=== PATIENT | female | born 1980 | race African-American/Black ===

== ENCOUNTER 2018-02-27 16:30 | Day surgery (SDC) | payer BC ==
[2018-02-27 17:03] VITALS: BP 134/73; PULSE 95; TEMP 98.3
[2018-02-27] MEDS ORDERED: CYANOCOBALAMIN (VITAMIN B-12) 1000 MCG/1 ML VIAL SQ ONE (17:30)
[2018-02-27] MEDS ORDERED: IRON SUCROSE INJECTION 200 MG in SODIUM CHLORIDE 100 ML IVPB ONE (18:30)
== END 2018-02-27 19:40 | disposition home or self-care (01) ==
LOC: FINFUSION 16:30 → FM/S 16:32 → FINFUSION 19:40
PROVIDERS: ATTEND Internal Medicine Hematology & Oncology
PROC: 3E033GC Introduction of Other Therapeutic Substance into Peripheral Vein, Percutaneous Approach (ICD-10-PCS; principal; 2018-02-27)
PROC: 3E013GC Introduction of Other Therapeutic Substance into Subcutaneous Tissue, Percutaneous Approach (ICD-10-PCS; 2018-02-27)
DX: D50.9 Iron deficiency anemia, unspecified (principal); D51.0 Vitamin B12 deficiency anemia due to intrinsic factor deficiency
CPT/HCPCS: 96365; 96372; J1756

== ENCOUNTER 2018-03-01 11:16 | Day surgery (SDC) | payer BC ==
[2018-03-01] MEDS ORDERED: IRON SUCROSE INJECTION 200 MG in SODIUM CHLORIDE 100 ML IVPB ONE (11:45)
[2018-03-01] MEDS ORDERED: CYANOCOBALAMIN (VITAMIN B-12) 1000 MCG/1 ML VIAL SQ SCH (12:00)
[2018-03-01 12:24] VITALS: BP 132/76; PULSE 72
[2018-03-01 13:03] VITALS: TEMP 98.4
== END 2018-03-01 12:25 | disposition home or self-care (01) ==
LOC: FINFUSION 11:16 → FM/S 11:19 → FINFUSION 12:25
PROVIDERS: ATTEND Internal Medicine Hematology & Oncology
PROC: 3E033GC Introduction of Other Therapeutic Substance into Peripheral Vein, Percutaneous Approach (ICD-10-PCS; principal; 2018-03-01)
PROC: 3E013GC Introduction of Other Therapeutic Substance into Subcutaneous Tissue, Percutaneous Approach (ICD-10-PCS; 2018-03-01)
DX: D50.9 Iron deficiency anemia, unspecified (principal); D51.0 Vitamin B12 deficiency anemia due to intrinsic factor deficiency
CPT/HCPCS: 96365; 96372; J1756

== ENCOUNTER 2018-03-06 09:37 | Day surgery (SDC) | payer BC ==
[2018-03-06] MEDS ORDERED: CYANOCOBALAMIN (VITAMIN B-12) 1000 MCG/1 ML VIAL SQ ONE (11:00)
[2018-03-06] MEDS ORDERED: IRON SUCROSE INJECTION 200 MG in SODIUM CHLORIDE 100 ML IVPB ONE (11:00)
[2018-03-06 12:17] VITALS: BP 120/71; PULSE 77; TEMP 98.2
== END 2018-03-06 10:59 | disposition home or self-care (01) ==
LOC: FINFUSION 09:37 → FM/S 09:37 → FINFUSION 10:59
PROVIDERS: ATTEND Internal Medicine Hematology & Oncology
PROC: 3E033GC Introduction of Other Therapeutic Substance into Peripheral Vein, Percutaneous Approach (ICD-10-PCS; principal; 2018-03-06)
PROC: 3E013GC Introduction of Other Therapeutic Substance into Subcutaneous Tissue, Percutaneous Approach (ICD-10-PCS; 2018-03-06)
DX: D50.9 Iron deficiency anemia, unspecified (principal); D51.0 Vitamin B12 deficiency anemia due to intrinsic factor deficiency
CPT/HCPCS: 96365; 96372; J1756

== ENCOUNTER 2018-03-08 12:51 | Day surgery (SDC) | payer BC ==
[2018-03-08] MEDS ORDERED: CYANOCOBALAMIN (VITAMIN B-12) 1000 MCG/1 ML VIAL SQ SCH (13:15)
[2018-03-08] MEDS ORDERED: IRON SUCROSE INJECTION 200 MG in SODIUM CHLORIDE 100 ML IVPB ONE (13:15)
[2018-03-08 13:38] VITALS: TEMP 97.4; BMI 74.9
[2018-03-08 15:04] VITALS: BP 120/68; PULSE 78
== END 2018-03-08 15:04 | disposition home or self-care (01) ==
LOC: FINFUSION 12:51 → FM/S 12:52 → FINFUSION 15:04
PROVIDERS: ATTEND Internal Medicine Hematology & Oncology
PROC: 3E033GC Introduction of Other Therapeutic Substance into Peripheral Vein, Percutaneous Approach (ICD-10-PCS; principal; 2018-03-08)
PROC: 3E013GC Introduction of Other Therapeutic Substance into Subcutaneous Tissue, Percutaneous Approach (ICD-10-PCS; 2018-03-08)
DX: D50.9 Iron deficiency anemia, unspecified (principal); D51.0 Vitamin B12 deficiency anemia due to intrinsic factor deficiency
CPT/HCPCS: 96365; 96372; J1756

== ENCOUNTER 2018-04-24 12:28 | Day surgery (SDC) | payer BC ==
[2018-04-24] MEDS ORDERED: IRON SUCROSE INJECTION 200 MG in SODIUM CHLORIDE 100 ML IVPB ONE (12:45)
[2018-04-24 13:18] VITALS: BP 124/64; PULSE 88; TEMP 98.8
[2018-04-24] MEDS ORDERED: CYANOCOBALAMIN (VITAMIN B-12) 1000 MCG/1 ML VIAL IM ONE (13:30)
== END 2018-04-24 14:15 | disposition home or self-care (01) ==
LOC: FM/S 12:28 → FINFUSION 12:28
PROVIDERS: ATTEND Internal Medicine Hematology & Oncology
PROC: 3E033GC Introduction of Other Therapeutic Substance into Peripheral Vein, Percutaneous Approach (ICD-10-PCS; principal; 2018-04-24)
PROC: 3E013GC Introduction of Other Therapeutic Substance into Subcutaneous Tissue, Percutaneous Approach (ICD-10-PCS; 2018-04-24)
DX: D50.9 Iron deficiency anemia, unspecified (principal); D51.0 Vitamin B12 deficiency anemia due to intrinsic factor deficiency
CPT/HCPCS: 96365; 96372; J1756

== ENCOUNTER 2018-04-26 12:38 | Day surgery (SDC) | payer BC ==
[2018-04-26] MEDS ORDERED: CYANOCOBALAMIN (VITAMIN B-12) 1000 MCG/1 ML VIAL IM SCH (13:15)
[2018-04-26] MEDS ORDERED: IRON SUCROSE INJECTION 200 MG in SODIUM CHLORIDE 100 ML IVPB ONE (13:15)
[2018-04-26 13:28] VITALS: TEMP 98.4
[2018-04-26 16:38] VITALS: BP 120/64; PULSE 84
== END 2018-04-26 14:15 | disposition home or self-care (01) ==
LOC: FINFUSION 12:38 → FM/S 12:44 → FINFUSION 14:15
PROVIDERS: ATTEND Internal Medicine Hematology & Oncology
PROC: 3E033GC Introduction of Other Therapeutic Substance into Peripheral Vein, Percutaneous Approach (ICD-10-PCS; principal; 2018-04-26)
DX: D50.9 Iron deficiency anemia, unspecified (principal)
CPT/HCPCS: 96365; 96372; J1756

== ENCOUNTER 2018-04-28 13:02 | Day surgery (SDC) | payer BC ==
[2018-04-28 13:30] VITALS: BP 138/66; PULSE 79; TEMP 98.5; BMI 34.7
[2018-04-28] MEDS ORDERED: IRON SUCROSE INJECTION 200 MG in SODIUM CHLORIDE 100 ML IVPB ONE (13:30)
[2018-04-28] MEDS ORDERED: PT OWN MED DRAWER 7, Y5N ONE (13:49)
== END 2018-04-28 14:45 | disposition home or self-care (01) ==
LOC: FINFUSION 13:02 → FM/S 13:05 → FINFUSION 14:45
PROVIDERS: ATTEND Internal Medicine Hematology & Oncology
PROC: 3E033GC Introduction of Other Therapeutic Substance into Peripheral Vein, Percutaneous Approach (ICD-10-PCS; principal; 2018-04-28)
DX: D50.9 Iron deficiency anemia, unspecified (principal)
CPT/HCPCS: 96365; 96372; J1756

== ENCOUNTER 2018-05-02 15:49 | Day surgery (SDC) | payer BC ==
[2018-05-02] MEDS ORDERED: CYANOCOBALAMIN (VITAMIN B-12) 1000 MCG/1 ML VIAL SQ ONE (17:15)
[2018-05-02] MEDS ORDERED: IRON SUCROSE INJECTION 200 MG in SODIUM CHLORIDE 90 ML IVPB ONE (17:15)
[2018-05-02 17:53] VITALS: BP 123/65; PULSE 68; TEMP 98.8
== END 2018-05-02 17:35 | disposition home or self-care (01) ==
LOC: FINFUSION 15:49 → FM/S 16:05 → FINFUSION 17:35
PROVIDERS: ATTEND Internal Medicine Hematology & Oncology
PROC: 3E033GC Introduction of Other Therapeutic Substance into Peripheral Vein, Percutaneous Approach (ICD-10-PCS; principal; 2018-05-02)
DX: D50.9 Iron deficiency anemia, unspecified (principal)
CPT/HCPCS: 96365; 96372; J1756